=== PATIENT | female | born 2000 | race Two or more races ===

== ENCOUNTER 2023-06-17 15:15 | Emergency (ER) | payer OTHER ==
[~2023-06-17] VITALS: Ht 154.9 cm; Wt 49.9 kg
== END 2023-06-17 19:33 | disposition home or self-care (01) ==
LOC: ER 15:15
DX: S30.0XXA Contusion of lower back and pelvis, initial encounter (principal); W19.XXXA Unspecified fall, initial encounter; Y93.9 Activity, unspecified; Y92.9 Unspecified place or not applicable; Y99.9 Unspecified external cause status